=== PATIENT | female | born 1960 | race Caucasian/White ===

== ENCOUNTER → 2017-04-24 | Outpatient (CLI) | payer OTHER ==
[~2017-04-24] MED LIST: FLUO20CA4 PO; LEVO137T2 PO
--- NOTE | 2017-04-26 08:52 | RSPPFT ---
DATE OF PROCEDURE: 04/24/17 COMMENTS: The forced vital capacity, FEV1, FEV1/FVC ratio are all normal. There is a small reduction in the FEF 25-75 which corrects after inhaled bronchodilator. IMPRESSION: This is compatible with totally reversible, small airways obstructive lung disease. This could be consistent with asthma.
== END ==
LOC: HRSP 11:17
DX: R05 Cough (principal)
CPT/HCPCS: 94060